=== PATIENT | female | born 1955 | race Caucasian/White ===

== ENCOUNTER 2017-11-19 16:52 | Inpatient (IN) | payer OTHER, SELFPAY ==
[2017-11-19 16:53] VITALS: BP 115/83; PULSE 125; RESP 18; TEMP 36.6; O2SAT 95; BMI 28.5
[2017-11-19 17:49] LABS: Mucous, Urine 0 SEEN /hpf (<or=2+)
[2017-11-19 17:59] LABS: Color, Urine Straw (Yellow); Glucose, Dipstick Normal (Normal); Ketone-Dipstick Negative (Negative); Leukocyte Esterase-Dipstick 500 /ul (Negative); Nitrite-Dipstick Negative (Negative); Occult Blood-Urine 50 /ul (Negative); Protein-Dipstick 30 mg/dl (Negative); Specific Gravity, Urine 1.005 (1.002-1.030); Urine Bilirubin Dipstick Negative (Negative); Urine Clarity Sl. Cloudy (Clear); Urine Urobilinogen Normal (Normal); Urine pH 6.5 (5.0 - 8.0)
[2017-11-19 18:30] LABS: Bacteria 1+ /hpf (None Seen); Red Blood Cells-Urine 5-10 SEEN /hpf (0-5); Squamous Epithelial Cells - UA 0-5 SEEN /hpf (5-10); White Blood Cells 50-100 SEEN /hpf (0-5)
[2017-11-19 18:31] LABS: Amorphous Sediment 1+ URATE
[2017-11-19] MEDS: 0.9% Normal Saline 1,000 ML 1000 ML IV (18:47)
[2017-11-19 18:52] LABS: Anion Gap 9 (5-15); BUN 17 mg/dL (7-18); BUN/Creat Ratio 16.3 RATIO (10-20); Calcium,Total 8.9 mg/dL (8.5-10.1); Chloride 106 mmol/L (98-107); Creatinine, Serum 1.04 mg/dL (0.55-1.02); EST Glomerular Filtration Rate 57 mL/min (>60); Est Glom Filt Rate - Afr Amer 69 mL/min (>60); Estimated Creatinine Clearance 60.12 ml/min; Glucose 121 mg/dL (74-106); Sodium Level 141 mmol/L (136-145)
[2017-11-19 19:26] VITALS: BP 111/67; PULSE 105; RESP 16; O2SAT 99
[2017-11-19] MEDS: 0.9% Normal Saline 1,000 ML 500 ML IV (19:39)
[2017-11-19] MEDS: Ciprofloxacin 500 MG Tablet PO (20:03)
[2017-11-19 21:45] LABS: Absolute Lymphocyte Count 1.02 X10^3/ul (0.83-4.51); Absolute Neutrophil Count 16.4 X10^3/uL (2.0-7.7); Basophil# 0.02 X10^3/uL; Basophil% 0.1 % (0-1); Eosinophil# 0.01 X10^3/uL; Eosinophils% 0.1 % (0-5); Hematocrit 39.9 % (37-47); Hemoglobin 13.7 g/dl (12.0-15.0); Lymphocyte # 1.02 X10^3/ul (4.0); Lymphocyte % 5.5 % (19-41); Mean Corp Hgb Conc 34.3 g/gl (32-36); Mean Corpuscular Hgb 30.9 pg (27.0-32.0); Mean Corpuscular Volume 90.1 fL (81-99); Mean Platelet Vol. 9.7 fl (6.2-12.0); Monocyte# 0.99 X10^3/uL; Monocyte% 5.4 % (0-10); Neutrophil # 16.41 X10^3/uL (2.7-7.7); Neutrophil % 88.7 % (47-70); Platelet Count 168 K/mm3 (150-450); RBC Distribution Width SD 42.4 fl (35.1-43.9); Red Blood Count 4.43 M/mm3 (4.2-5.4); White Blood Count 18.5 K/mm3 (4.4-11.0)
[2017-11-19 21:46] LABS: POSITIVE COUNT NO; POSITIVE DIFFERENTIAL NO; POSITIVE MORPHOLOGY NO
--- NOTE | 2017-11-19 22:03 | HP.PCM_ITS ---
Problem List (1) Sepsis secondary to UTI Status: Acute History of Present Illness Date of Admission: 11/19/17 Chief Complaint: Fever, dysuria The patient is a 62 year old F with no significant past medical history who comes in with complaints of fever and chills and dysuria with cloudy urine with frequency going for a couple of days with low back pain. Patient states that she has been having chills since morning and had a temperature of 100.6. Denies feeling dizzy or having palpitations or chest pain or shortness of breath or leg swelling. She admits to dysuria and frequency and urgency. Vitals in the ED show temperature of 90 8F, heart rate is 125, blood pressure 115/83, respiratory rate was 18 and she was saturating 95% on room air. Admitting labs showed RBC count of 18.5, hemoglobin of 13.7 platelet of 168, sodium 141, potassium 4.0, chloride 106, bicarbonate 26, BUN 17, creatinine 1.04 , lactic acid was 3.0. UA shows leukocyte esterase of 500, WBC count of between 50-100, urine is slightly cloudy. Past Medical History Allergies celecoxib [From Celebrex] Allergy (Verified 11/19/17 16:55) Unknown shellfish derived Allergy (Verified 11/19/17 16:55) Unknown amoxicillin Adverse Reaction (Verified 11/19/17 19:40) Itching Home Medications: Ambulatory Orders Medication Instructions Recorded Cholecalciferol (Vitamin D3) 1,000 unit PO DAILY 11/19/17 [Vitamin D3] Multivitamin [Multiple Vitamins] 1 each PO DAILY 11/19/17 [place]-3/Dha/Epa/Fish Oil [Fish Oil 1 each PO DAILY 11/19/17 1,000 mg Softgel] Surgical History: appendectomy Psychiatric History: No pertinent psych hx [employer] History: No pertinent [employer] history Lives: Spouse/ Significant Other Smoking Status: Never smoker Tobacco Use: Non-smoker Alcohol: None Drugs: None - *Family History Maternal History Items: Heart Disease - at age 79 Paternal History Items: Heart Disease Review of Systems Constitutional: Denies: Anorexia, Chills, Fever, Night Sweats, Weight Change Eyes: Denies: Blurred vision, Cataracts, Conjunctivae Inflammation, Double vision HEENT: Denies: Difficulty Hearing, Difficulty Swallowing, Head Aches, Hearing Changes, Sinus Congestion, Sinus Drainage, Sore Throat Cardiovascular: Denies: Chest Pain, Claudication, Chest Pressure, Palpitations Respiratory: Denies: Cough, Shortness of breath at rest, Sputum production Gastrointestinal: Denies: Abdominal Pain, Hematemesis, Nausea, Vomiting Genitourinary: Denies: Dysuria, Frequency Gynecological: Reports: Breast symptoms. Denies: Vaginal discharge, Vaginal itching Musculoskeletal: Denies: Joint Pain, Joint stiffness, Joint swelling, Joint Tenderness Skin: Denies: Rash, Wounds Neurological: Denies: Balance problems, Blurred vision, Difficulty swallowing, Focal weakness, Numbness, Tingling Psychiatric: Denies: Anxiety, Depression, Homicidal Ideations, Suicidal Ideations Hematologic/ Lymphatic: Denies: Easy Bruising, Easy Bleeding VTE Information - Inpt Only VTE Present on Admission: No VTE Pharm Prophylaxis ordered?: Yes Patient Problems: Active and Suspected Problems Sepsis secondary to UTI (Acute) - Physical Exam General: Alert, Oriented x3, Cooperative, - - in mild distress HEENT: Atraumatic, PERRLA, EOMI, Normocephalic Oral: Dry Mucosa Neck: Supple Lungs: Clear to auscultation, Normal air movement Cardiovascular: Regular rate, Regular Rhythm, Normal S1, Normal S2, No murmurs Abdomen: Bowel Sounds Present, Soft, Non Tender, Non-Distended, No Hepato- splenomegaly, - - LOw back tenderness, no bilateral flank tenderness Extremities: No edema Skin: No rashes, No breakdown Musculoskeletal: No Tenderness to Palpation of Joints or Extremities Neurological: Cranial nerves II-XII grossly intact Psych/Mental Status: Normal Affect, Appropriate Vital Signs Temp Pulse Resp BP Pulse Ox 98 F 105 H 16 111/67 99 11/19/17 16:53 11/19/17 19:26 11/19/17 19:26 11/19/17 19:26 11/19/17 19:26 Oxygen Delivery Method Room Air Weight: 87.543 kg Body Mass Index (BMI) 28.5 Laboratory Tests Past 24 Hrs 11/19/17 11/19/17 11/19/17 17:42 18:30 21:30 WBC 18.5 H RBC 4.43 Hgb 13.7 Hct 39.9 MCV 90.1 MCH 30.9 MCHC 34.3 RDW 13.0 RDW Differential 42.4 Plt Count 168 MPV 9.7 Immature Gran % (Auto) 0.200 Neut % (Auto) 88.7 H Lymph % (Auto) 5.5 L [place] % (Auto) 5.4 Eos % (Auto) 0.1 Baso % (Auto) 0.1 Absolute Neuts (auto) 16.4 H Absolute Lymphs (auto) 1.02 Total Counted Not Reportable Sodium 141 Potassium 4.0 Chloride 106 Carbon Dioxide 26.0 Anion Gap 9 BUN 17 Creatinine 1.04 H Estim Creat Clear Calc 60.12 Est GFR (MDRD) Af Amer 69 Est GFR (MDRD) Non-Af 57 L BUN/Creatinine Ratio 16.3 Glucose 121 H Lactic Acid Calcium 8.9 Urine Color Straw Urine Clarity Sl. Cloudy Urine pH 6.5 Ur Specific [place] 1.005 Urine Protein 30 H Urine Glucose (UA) Normal Urine Ketones Negative Urine Occult Blood 50 H Urine Nitrite Negative Urine Bilirubin Negative Urine Urobilinogen Normal Ur Leukocyte Esterase 500 H Urine RBC 5-10 SEEN Urine WBC 50-100 SEEN Ur Squamous Epith Cells 0-5 SEEN Amorphous Sediment 1+ URATE Urine Bacteria 1+ Urine Mucus 0 SEEN 11/19/17 21:30 WBC RBC Hgb Hct MCV MCH MCHC RDW RDW Differential Plt Count MPV Immature Gran % (Auto) Neut % (Auto) Lymph % (Auto) [place] % (Auto) Eos % (Auto) Baso % (Auto) Absolute Neuts (auto) Absolute Lymphs (auto) Total Counted Sodium Potassium Chloride Carbon Dioxide Anion Gap BUN Creatinine Estim Creat Clear Calc Est GFR (MDRD) Af Amer Est GFR (MDRD) Non-Af BUN/Creatinine Ratio Glucose Lactic Acid Pending Calcium Urine Color Urine Clarity Urine pH Ur Specific [place] Urine Protein Urine Glucose (UA) Urine Ketones Urine Occult Blood Urine Nitrite Urine Bilirubin Urine Urobilinogen Ur Leukocyte Esterase Urine RBC Urine WBC Ur Squamous Epith Cells Amorphous Sediment Urine Bacteria Urine Mucus Assessment/Plan Active and Suspected Problems Sepsis secondary to UTI (Acute) 62 year old F with no significant past medical history who comes in with complaints of fever and chills and dysuria with cloudy urine with frequency going for a couple of days with low back pain. 1. Severe sepsis secondary to UTI, patient is symptomatic, tachycardiac with heart rate of 125, leucocytosis of 18.5, lactic acid is 3.0 Plan: Admit to PCU, monitor on telemetry, IV fluids, repeat lactic acid, IV Cipro, alter antibiotics according to urine culture results, ultrasound of kidney and bladder. 2. Dehydration secondary to the #1 above, started on IV fluids, slight elevation in creatinine, will repeat labs in a.m. 3. DVT PPx - Lovenox SC Code Visit Inpatient E&M: 27034 Subs Hosp L3
--- NOTE | 2017-11-19 22:20 | ED.RN ---
lab called with critical lab results. lactic acid 3.0. Dr. Tyler made aware. no new orders at this time
[2017-11-19] MEDS: Acetaminophen 500 MG Tablet 1000 MG PO (22:21)
[2017-11-19 22:23] VITALS: BP 135/60; PULSE 111; RESP 16; O2SAT 96
--- NOTE | 2017-11-19 22:24 | ED.VISSUMM ---
- ER Visit Summary Date of Service: 11/19/17 Chief Complaint: Back pain, possible UTI History of Present Illness: The patient is a 62 F presents with back pain which began yesterday. She states it feels similar to when she has had urinary tract infections before. She has had cloudy urine. She has nausea with no vomiting. She has chills. She has had fever up to 100.3 at home. She went to urgent care and was sent to the ED for further evaluation. Physical Examination: Vitals are stable. Patient is afebrile. Heart rate 125 alert no acute distress. HEENT exam is unremarkable. Neck is supple, no meningismus Lungs are clear and equal bilaterally. Heart is regular and tachycardic Abdomen is soft nontender nondistended. Back: mild bilateral CVA tenderness Extremities are unremarkable. Skin is warm and dry. No rash No focal neurologic deficit. Remainder of exam is unremarkable. Emergency Department Course and Treatment: She was given IV fluids. Her heart rate came down to 105 but she continued to feel shaking chills. Repeat temperature was 100.3. Chemistries show creatinine 1.04. CBC shows white count of 18.5. Urinalysis shows 50-100 white blood cells. Urine culture was sent. Lactic acid is 3.0. She was given Cipro. Discussed with the hospitalist for admission. Disposition: Admission Impression: Pyelonephritis, severe sepsis This note was generated with [employer] dictation software. It may contain incorrect words, spelling, and punctuation that were not noted in review of the chart prior to signing ED Disposition - Plan for ED Patient: Chief Complaint: Complaint
[2017-11-19] MEDS: Ceftriaxone 1 GM/50 ML BAG IV (22:50)
[2017-11-19 23:36] VITALS: BMI 28.7
[2017-11-19 23:38] VITALS: BP 115/73; PULSE 102; RESP 20; TEMP 38.3; O2SAT 94
[2017-11-19 23:49] VITALS: BMI 28.7
[2017-11-19] MEDS: 0.9% Normal Saline 1,000 ML 100 ML IV (23:53)
[2017-11-20] VITALS (14 sets, daily range): BP systolic 104–130; BP diastolic 58–82; PULSE 75–130; RESP 16–18; TEMP 36.8–39.4; O2SAT 95–99
[2017-11-20 01:40] LABS: Reflex Lactate? Y
[2017-11-20 03:00] LABS: Anion Gap 9 (5-15); BUN 15 mg/dL (7-18); BUN/Creat Ratio 17.4 RATIO (10-20); Calcium,Total 8.2 mg/dL (8.5-10.1); Chloride 111 mmol/L (98-107); Creatinine, Serum 0.86 mg/dL (0.55-1.02); EST Glomerular Filtration Rate 71 mL/min (>60); Est Glom Filt Rate - Afr Amer 86 mL/min (>60); Glucose 109 mg/dL (74-106); Potassium 3.7 mmol/L (3.5-5.1); Sodium Level 143 mmol/L (136-145)
[2017-11-20 03:04] LABS: Lactic Acid 1.6 mmol/L (0.4-2.0)
[2017-11-20 03:16] LABS: Absolute Lymphocyte Count 0.99 X10^3/ul (0.83-4.51); Absolute Neutrophil Count 15.1 X10^3/uL (2.0-7.7); Basophil# 0.01 X10^3/uL; Basophil% 0.1 % (0-1); Hematocrit 38.3 % (37-47); Hemoglobin 13.3 g/dl (12.0-15.0); Lymphocyte # 0.99 X10^3/ul (4.0); Lymphocyte % 5.8 % (19-41); Mean Corp Hgb Conc 34.7 g/gl (32-36); Mean Corpuscular Hgb 31.4 pg (27.0-32.0); Mean Corpuscular Volume 90.3 fL (81-99); Mean Platelet Vol. 9.9 fl (6.2-12.0); Monocyte# 1.04 X10^3/uL; Monocyte% 6.1 % (0-10); Neutrophil # 15.09 X10^3/uL (2.7-7.7); Neutrophil % 87.8 % (47-70); Platelet Count 162 K/mm3 (150-450); RBC Distribution Width CV 13.2 % (11.6-14.6); RBC Distribution Width SD 42.9 fl (35.1-43.9); Red Blood Count 4.24 M/mm3 (4.2-5.4); White Blood Count 17.2 K/mm3 (4.4-11.0)
[2017-11-20 03:17] LABS: POSITIVE COUNT NO; POSITIVE DIFFERENTIAL NO; POSITIVE MORPHOLOGY NO
[2017-11-20] MEDS: Acetaminophen 325 MG Tablet 650 MG PO ×3 (04:52→20:49)
--- NOTE | 2017-11-20 05:55 | US_ITS ---
STUDY: RENAL ULTRASOUND - COMPLETE REASON FOR EXAM: Female, 62 years old. Flank pain. Urinary tract infection. Fever. TECHNIQUE: Ultrasound evaluation of the kidneys was performed with real-time and static simpson-scale imaging. COMPARISON: None. FINDINGS: RIGHT KIDNEY: Normal location of the right kidney, which is normal in size. The right kidney measures 13.7 cm. There is a normal cortex of the right kidney. The renal cortex measures 1.4 cm. There is no right renal mass or cyst. There are echogenic foci measuring 0.3 and 0.4 cm consistent with stones. There is moderate hydronephrosis of the right kidney. DISTAL RIGHT URETER: There is non-visualization of the distal right ureter. There is no demonstrated right ureterovesical junction calculus. There is a visualized right ureteral jet. LEFT KIDNEY: Normal location of the left kidney, which is normal in size. The left kidney measures 13.3 cm. There is a normal cortex of the left kidney. The renal cortex measures 1.8 cm. There is no left renal mass or cyst. There is 0.5 cm echogenic focus consistent with stone. There is moderate hydronephrosis of the left kidney. DISTAL LEFT URETER: There is non-visualization of the distal left ureter. There is no demonstrated left ureterovesical junction calculus. There is a visualized left ureteral jet. BLADDER: The distended urinary bladder has a volume of 95 ml. The empty urinary bladder has a volume of 21 ml. There is a normal wall thickness of the distended urinary bladder. There is no demonstrated mass within the urinary bladder. There are no demonstrated bladder calculi. US/Kidney and Bladder IMPRESSION: Bilateral renal stones. Bilateral hydronephrosis. Electronically Signed: Shai Clark MD at 15:13 EST , Service support ,
[2017-11-20] MEDS: Omega-3 Acid Ethyl Esters 1 GM Capsule PO (08:51)
[2017-11-20] MEDS: Multivitamins,Therapeutic Tablet 1 TABLET PO (08:51)
[2017-11-20] MEDS: 0.9% Normal Saline 1,000 ML 100 ML IV (08:51)
[2017-11-20] MEDS: Ciprofloxacin 400 MG/200 ML BAG 200 MG IV ×2 (10:46→22:09)
--- NOTE | 2017-11-20 11:51 | PCM.DC ---
- Discharge Diagnoses Current Active Problems: Current Active and Chronic Problems Sepsis secondary to UTI (Acute) You will use the following diet at home:: No restrictions Your food should be the consistency of: Regular Your liquids should be the consistency of: Regular/Thin Call your doctor if you observe: Fever of 101 or Higher, - - Discomfort urinating. Allergies/Adverse Reactions: Allergies celecoxib [From Celebrex] Allergy (Verified 11/19/17 16:55) Unknown shellfish derived Allergy (Verified 11/19/17 16:55) Unknown amoxicillin Adverse Reaction (Verified 11/19/17 19:40) Itching Medications to take at Discharge Cholecalciferol (Vitamin D3) [Vitamin D3] 1,000 unit PO DAILY 11/19/17 Multivitamin [Multiple Vitamins] 1 each PO DAILY 11/19/17 [place]-3/Dha/Epa/Fish Oil [Fish Oil 1,000 mg Softgel] 1 each PO DAILY 11/19/17 Acetaminophen [Tylenol Tablet] 500 mg PO Q4H PRN PRN tablet 11/20/17 Ciprofloxacin [Cipro] 500 mg PO BID #20 tab 11/20/17 The following prescriptions were given: Ciprofloxacin [Cipro] 500 mg PO BID #20 tab Primary Care Physician: Herrera Birmingham MD [Primary Care Provider] - Within 1 Week Proposed Discharge Date: 11/20/17
--- NOTE | 2017-11-20 11:57 | DS.PCM_ITS ---
Discharge Date and Diagnosis - Problem List Patient Problems: Active and Suspected Problems Severe sepsis (Acute) UTI (urinary tract infection) (Acute) Date of Admission: 11/19/17 Date of Discharge: 11/20/17 - Primary Discharge Diagnosis Active and Suspected Problems Sepsis secondary to UTI (Acute) Hospital Course and Treatment Imaging Results: 11/20/17 05:55 Kidney and Bladder [US] AM (NON MEDS) Operations: None Procedures: None Summary of Care Provided: The patient is a 62 year old F presents with dysuria and fever. Patient had a temperature of 100.6 Fahrenheit. Presented to the emergency room where she had a white count of 18.5 and lactic acid of 3. Patient had urinalysis that was positive for urinary tract infection. So it was felt that this was a UTI. Patient had no flank tenderness. But patient with severe sepsis and did receive IV fluids. Patient's lactic acidosis resolved and is 1.6. Patient is otherwise feeling well and anxious to go home. And told patient we could send her home but the safe way be just to continue to watch her and ensure that her cultures are showing that she is on proper antibiotics but given the patient's clinical condition has improved, that she no longer febrile and her white count is trending down and I do not feel that it is unreasonable for the patient to be discharged. I will follow up on urine culture and notify the patient if the culture results showing showing something that is resistant to the antibiotic which is can be ciprofloxacin. I am empirically treat her for pyelonephritis with ciprofloxacin for 10 days. [] physical exam Vital Signs Height 1.75 m Weight: 88.2 kg Weight in Pounds 194.4 lbs Pulse Ox 98 Temperature 36.8 C Pulse Rate 89 Respiratory Rate 18 Blood Pressure 104/58 Blood Pressure Position Sitting She is afebrile. Nontoxic. Heart is regular rate and rhythm plus S1-S2 without any murmurs gallops or rubs. Lungs are clear to auscultation bilaterally. Abdomen is soft nontender nondistended with normal bowel sounds. No costovertebral angle tenderness noted. Discharge Diet: No Restrictions Discharge Activity: Return to Normal Activity Call your doctor if you observe: Fever of 101 or Higher, - - Discomfort urinating. Home Medications: Medications to take at Discharge Cholecalciferol (Vitamin D3) [Vitamin D3] 1,000 unit PO DAILY 11/19/17 Multivitamin [Multiple Vitamins] 1 each PO DAILY 11/19/17 [place]-3/Dha/Epa/Fish Oil [Fish Oil 1,000 mg Softgel] 1 each PO DAILY 11/19/17 Acetaminophen [Tylenol Tablet] 500 mg PO Q4H PRN PRN tablet 11/20/17 Ciprofloxacin [Cipro] 500 mg PO BID #20 tab 11/20/17 Following Prescrptions Were Given to Patient: Ciprofloxacin [Cipro] 500 mg PO BID #20 tab Primary Care Physician: Herrera Birmingham MD [Primary Care Provider] - Within 1 Week Disposition: Home Minutes spent on discharge:: 28 Patient Condition:: Good Meaningful Use Info Meaningful Use Diagnoses (Choose all that apply): None applicable Code Visit Inpatient E&M: 69742 Disch Hosp
[2017-11-20] MEDS: Ibuprofen 400 MG Tablet PO (19:08)
[2017-11-21] VITALS (13 sets, daily range): BP systolic 105–134; BP diastolic 56–80; PULSE 69–113; RESP 16; TEMP 36.4–39.2; O2SAT 96–98
[2017-11-21] MEDS: Multivitamins,Therapeutic Tablet 1 TABLET PO (09:04)
[2017-11-21] MEDS: Omega-3 Acid Ethyl Esters 1 GM Capsule PO (09:04)
--- NOTE | 2017-11-21 09:27 | CT_ITS ---
STUDY: CT ABDOMEN AND PELVIS WITH CONTRAST REASON FOR EXAM: Female, 62 years old. Bilateral hydronephrosis. The superior and UTI. RADIATION DOSAGE (If Supplied By Facility): CTDIvol = ( 17.36 ) mGy, DLP = ( 2158.33 ) mGycm TECHNIQUE: Transaxial images were obtained from the dome of the diaphragm to the symphysis pubis without oral contrast. 100CC ml of Isovue 300 contrast was administered. Sagittal and coronal images were reconstructed. Individualized dose optimization techniques were used for this CT. COMPARISON: Comparison is made with prior renal sonogram dated November 20, 2017. FINDINGS: Minimal left pleural effusion with left basilar atelectasis and/or infiltration. The visualized portions of the heart are within normal limits. There is a 1.85 m cyst in the caudate lobe of the liver. There is a 2.57 m cyst in the medial aspect of the right lobe of liver adjacent to the falciform ligament. This also evidence of scattered small cysts in the right lobe. Mild fatty infiltration of the liver. Normal gallbladder and extrahepatic biliary system. There are multiple benign calcified granulomata of the spleen. Normal pancreas. Normal bilateral adrenal glands. There is evidence of multiple right parapelvic cysts. No significant hydronephrosis is seen. There is also evidence of left parapelvic cysts. Mild to moderate degree of left hydronephrosis with left hydroureter down to the ureterovesical junction where there is a 5.1 mm calculus. I also suspect 2 smaller calculi in the distal portion of the left ureter proximal to the ureterovesical junction. Left perinephric stranding as well as increased markings in the left para colic gutter most likely secondary to the obstruction. There is a small hiatal hernia. Normal small intestine. Normal colon. The appendix is visualized and appears normal. Normal abdominal aorta. Normal inferior vena cava. Normal retroperitoneum. Normal urinary bladder. Small amount of free fluid in the cul-de-sac. There is evidence of prior bilateral tubal ligation. There is a small umbilical hernia containing fat. There are degenerative changes of the visualized lumbar spine. CT/Abdomen/Pelvis WITH Contrast IMPRESSION: Left-sided hydronephrosis and hydroureter due to a calculus in the distal portion of the left ureter as well as in the ureterovesical junction as described. Left perinephric stranding. Bilateral peripelvic cysts. Small left pleural effusion with underlying infiltration and/or atelectasis. Electronically Signed: Reggie Javed MD at 10:49 EST Tel [phone], Service support ,
--- NOTE | 2017-11-21 09:42 | PCM.PN.HOSP ---
Patient Problems: Active and Suspected Problems UTI (urinary tract infection) (Acute) Severe sepsis (Acute) Subjective: Feeling better today. Vitals/I&O's: Vital Signs Temp Pulse Resp BP Pulse Ox 37.2 C 82 16 105/56 L 98 11/21/17 05:40 11/21/17 08:05 11/21/17 02:50 11/21/17 02:50 11/21/17 02:50 Oxygen Delivery Method Room Air Weight: 88.2 kg Body Mass Index (BMI) 28.7 Intake and Output for Last 24 Hours 11/19/17 11/20/17 11/21/17 23:59 23:59 23:59 Intake Total 5083 / 5083 Output Total 2150 / 2150 Balance 2933 / 2933 General: Alert, Cooperative, No apparent distress HEENT: Atraumatic, Normocephalic Neck: No Nodes, Thyroid Normal Size and Texture Lungs: Clear to auscultation, Normal air movement, No rhonchi, No wheeze Cardiovascular: Regular rate, Regular Rhythm, Normal S1, Normal S2, No murmurs Abdomen: Bowel Sounds Present, Soft, Non Tender, Non-Distended, No Hepato-splenomegaly, - - No costovertebral angle tenderness. Extremities: No edema, No Calf Tenderness Current Medications Acetaminophen (Tylenol) 650 mg PO Q4H PRN PRN PRN Reason: Mild Pain (1-3)/Temp > 100.7 F Last Admin: 11/20/17 20:49 Dose: 650 mg Bisacodyl (Dulcolax) 5 mg PO DAILY PRN PRN PRN Reason: Constipation Cholecalciferol (Vitamin D) 1,000 unit PO DAILY [facility] [place] Last Admin: 11/21/17 09:04 Dose: 1,000 unit Ciprofloxacin (Cipro) 400 mg in 200 mls @ 200 mls/hr IV Q12 [facility] [place] Last Admin: 11/20/17 22:09 Dose: 200 mls/hr Ibuprofen (Motrin) 400 mg PO Q4H PRN PRN PRN Reason: MILD PAIN (1-3/10) Last Admin: 11/20/17 19:08 Dose: 400 mg Magnesium Hydroxide (Milk Of Magnesia) 30 ml PO DAILY PRN PRN PRN Reason: Constipation Multivitamins (Multivitamin) 1 tablet PO DAILY@0800 [facility] [place] Last Admin: 11/21/17 09:04 Dose: 1 tablet [id number] Ethyl Esters (Lovaza) 1 gm PO DAILY [facility] Last Admin: 11/21/17 09:04 Dose: 1 gm Ondansetron HCl (Zofran) 4 mg IV Q8H PRN PRN PRN Reason: NAUSEA Oxycodone HCl (Oxyir) 5 mg PO Q6H PRN PRN PRN Reason: SEVERE PAIN (6-10/10) Oxycodone HCl (Oxyir) 5 - 10 mg PO Q4H PRN PRN PRN Reason: MOD-SEVERE PAIN (4-10/10) Sodium Chloride () 5 - 30 ml IV UD PRN PRN Reason: SALINE FLUSH Assessment/Plan Active and Suspected Problems UTI (urinary tract infection) (Acute) Severe sepsis (Acute) 1. severe sepsis POA 2/2 #2 2. UTI: + klebsiella bcx negative 3. hydronephrosis incidental finding. vijaya Marques, recommend CT order CT and follow up
--- NOTE | 2017-11-21 09:49 | PN_ITS ---
Patient Problems: Active and Suspected Problems UTI (urinary tract infection) (Acute) Severe sepsis (Acute) Subjective: Feeling better today. Vitals/I&O's: Vital Signs Temp Pulse Resp BP Pulse Ox 37.2 C 82 16 105/56 L 98 11/21/17 05:40 11/21/17 08:05 11/21/17 02:50 11/21/17 02:50 11/21/17 02:50 Oxygen Delivery Method Room Air Weight: 88.2 kg Body Mass Index (BMI) 28.7 Intake and Output for Last 24 Hours 11/19/17 11/20/17 11/21/17 23:59 23:59 23:59 Intake Total 5083 / 5083 Output Total 2150 / 2150 Balance 2933 / 2933 General: Alert, Cooperative, No apparent distress HEENT: Atraumatic, Normocephalic Neck: No Nodes, Thyroid Normal Size and Texture Lungs: Clear to auscultation, Normal air movement, No rhonchi, No wheeze Cardiovascular: Regular rate, Regular Rhythm, Normal S1, Normal S2, No murmurs Abdomen: Bowel Sounds Present, Soft, Non Tender, Non-Distended, No Hepato- splenomegaly, - - No costovertebral angle tenderness. Extremities: No edema, No Calf Tenderness Current Medications Acetaminophen (Tylenol) 650 mg PO Q4H PRN PRN PRN Reason: Mild Pain (1-3)/Temp > 100.7 F Last Admin: 11/20/17 20:49 Dose: 650 mg Bisacodyl (Dulcolax) 5 mg PO DAILY PRN PRN PRN Reason: Constipation Cholecalciferol (Vitamin D) 1,000 unit PO DAILY [facility] Last Admin: 11/21/17 09:04 Dose: 1,000 unit Ciprofloxacin (Cipro) 400 mg in 200 mls @ 200 mls/hr IV Q12 [facility] Last Admin: 11/20/17 22:09 Dose: 200 mls/hr Ibuprofen (Motrin) 400 mg PO Q4H PRN PRN PRN Reason: MILD PAIN (1-3/10) Last Admin: 11/20/17 19:08 Dose: 400 mg Magnesium Hydroxide (Milk Of Magnesia) 30 ml PO DAILY PRN PRN PRN Reason: Constipation Multivitamins (Multivitamin) 1 tablet PO DAILY@0800 [facility] Last Admin: 11/21/17 09:04 Dose: 1 tablet [place]-4-Zwha Ethyl Esters (Lovaza) 1 gm PO DAILY [facility] Last Admin: 11/21/17 09:04 Dose: 1 gm Ondansetron HCl (Zofran) 4 mg IV Q8H PRN PRN PRN Reason: NAUSEA Oxycodone HCl (Oxyir) 5 mg PO Q6H PRN PRN PRN Reason: SEVERE PAIN (6-10/10) Oxycodone HCl (Oxyir) 5 - 10 mg PO Q4H PRN PRN PRN Reason: MOD-SEVERE PAIN (4-10/10) Sodium Chloride () 5 - 30 ml IV UD PRN PRN Reason: SALINE FLUSH Assessment/Plan Active and Suspected Problems UTI (urinary tract infection) (Acute) Severe sepsis (Acute) 1. severe sepsis * POA * 2/2 #2 2. UTI: * + klebsiella * bcx negative 3. hydronephrosis * incidental finding. * vijaya Marques, recommend CT * order CT and follow up
[2017-11-21] MEDS: Ciprofloxacin 400 MG/200 ML BAG 200 MG IV ×2 (10:29→21:13)
[2017-11-21] MEDS: 0.9% NaCl Peripheral Flush Adult/Peds IV ×3 (10:29→23:26)
--- NOTE | 2017-11-21 14:48 | CASEMGMT ---
RN CM Note: pt to return home today. Independent, no dc needs identified. Roger YAON RN ACM
[2017-11-21] MEDS: Acetaminophen 325 MG Tablet 650 MG PO (15:44)
--- NOTE | 2017-11-21 17:32 | PCM.CONS.U ---
Problem List (1) UTI (urinary tract infection) Status: Acute Qualifiers: Urinary tract infection type: acute pyelonephritis Qualified Code(s): N10 - Acute pyelonephritis (2) Ureteral calculi Status: Acute Comment: left side with left hydro and UTI Reason for Consult Date of Consultation: 11/21/17 Reason for Consultation: ureteral calculi, with hydroneophrosis, UTI, pyelo History of Present Illness: The patient is a 62 year old Female admitted with left pyelo ct scan with obstruction of the left ureter with stones x 2. admitted and now stable, some pain in the back. Past Medical History Allergies celecoxib [From Celebrex] Allergy (Verified 11/19/17 16:55) Unknown shellfish derived Allergy (Verified 11/19/17 16:55) Unknown amoxicillin Adverse Reaction (Verified 11/19/17 19:40) Itching Home Medications: Ambulatory Orders Medication Instructions Recorded Cholecalciferol (Vitamin D3) 1,000 unit PO DAILY 11/19/17 [Vitamin D3] Multivitamin [Multiple Vitamins] 1 each PO DAILY 11/19/17 [place]-3/Dha/Epa/Fish Oil [Fish Oil 1 each PO DAILY 11/19/17 1,000 mg Softgel] Acetaminophen [Tylenol Tablet] 500 mg PO Q4H PRN PRN tablet 11/20/17 Ciprofloxacin [Cipro] 500 mg PO BID #20 tab 11/20/17 Surgical History: appendectomy Psychiatric History: No pertinent psych hx 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 Denies: Chills, Weight Change HEENT: Denies: Head Aches, Sinus Congestion, Sinus Drainage Cardiovascular: Denies: Chest Pain, Palpitations Respiratory: Denies: Cough, Shortness of breath at rest, Sputum production Gastrointestinal: Denies: Abdominal Pain, Nausea, Vomiting Genitourinary: Reports: Frequency. Denies: Dysuria Musculoskeletal: Denies: Joint Pain, Joint Tenderness Skin: Denies: Rash, Wounds Neurological: Denies: Numbness, Tingling, Focal weakness Psychiatric: Denies: Anxiety, Depression, Homicidal Ideations, Suicidal Ideations Hematologic/ Lymphatic: Denies: Easy Bruising, Easy Bleeding Physical Exam - Physical Exam Vital Signs Temp 102.6 F H 11/21/17 15:40 Pulse 98 11/21/17 15:59 Resp 16 11/21/17 15:40 BP 134/80 H 11/21/17 15:40 Pulse Ox 97 11/21/17 15:40 Intake & Output 11/19/17 11/20/17 11/21/17 23:59 23:59 23:59 Intake Total 5083 / 5083 526 / 526 Output Total 2150 / 2150 Balance 2933 / 2933 526 / 526 Weight: 88.2 kg 88.2 kg Intake: Oral 3050 / 3050 450 / 450 IV fluid/meds 2032 / 2032 76 / 76 Output: Urine 1550 / 1550 #2 Urine 600 / 600 General: Alert, Oriented x3 HEENT: Atraumatic Oral: Moist Mucosa Neck: Supple Cardiovascular: Regular rate Abdomen: Soft Rectal: Exam deferred Extremities: No clubbing, No cyanosis, No edema Skin: No rashes Musculoskeletal: No Tenderness to Palpation of Joints or Extremities Neurological: Cranial nerves II-XII grossly intact Psych/Mental Status: Normal Affect Assessment/Plan Active and Suspected Problems Ureteral calculi (Acute) left side with left hydro and UTI UTI (urinary tract infection) (Acute) Severe sepsis (Acute) npo for surgery plan or left ureteroscopy laser of stone and stent on the left.
--- NOTE | 2017-11-21 17:35 | CON.PCM_ITS ---
Problem List (1) UTI (urinary tract infection) Status: Acute Qualifiers: Urinary tract infection type: acute pyelonephritis Qualified Code(s): N10 - Acute pyelonephritis (2) Ureteral calculi Status: Acute Comment: left side with left hydro and UTI Reason for Consult Date of Consultation: 11/21/17 Reason for Consultation: ureteral calculi, with hydroneophrosis, UTI, pyelo History of Present Illness: The patient is a 62 year old Female admitted with left pyelo ct scan with obstruction of the left ureter with stones x 2. admitted and now stable, some pain in the back. Past Medical History Allergies celecoxib [From Celebrex] Allergy (Verified 11/19/17 16:55) Unknown shellfish derived Allergy (Verified 11/19/17 16:55) Unknown amoxicillin Adverse Reaction (Verified 11/19/17 19:40) Itching Home Medications: Ambulatory Orders Medication Instructions Recorded Cholecalciferol (Vitamin D3) 1,000 unit PO DAILY 11/19/17 [Vitamin D3] Multivitamin [Multiple Vitamins] 1 each PO DAILY 11/19/17 [place]-3/Dha/Epa/Fish Oil [Fish Oil 1 each PO DAILY 11/19/17 1,000 mg Softgel] Acetaminophen [Tylenol Tablet] 500 mg PO Q4H PRN PRN tablet 11/20/17 Ciprofloxacin [Cipro] 500 mg PO BID #20 tab 11/20/17 Surgical History: appendectomy Psychiatric History: No pertinent psych hx 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 Denies: Chills, Weight Change HEENT: Denies: Head Aches, Sinus Congestion, Sinus Drainage Cardiovascular: Denies: Chest Pain, Palpitations Respiratory: Denies: Cough, Shortness of breath at rest, Sputum production Gastrointestinal: Denies: Abdominal Pain, Nausea, Vomiting Genitourinary: Reports: Frequency. Denies: Dysuria Musculoskeletal: Denies: Joint Pain, Joint Tenderness Skin: Denies: Rash, Wounds Neurological: Denies: Numbness, Tingling, Focal weakness Psychiatric: Denies: Anxiety, Depression, Homicidal Ideations, Suicidal Ideations Hematologic/ Lymphatic: Denies: Easy Bruising, Easy Bleeding Physical Exam - Physical Exam Vital Signs Temp 102.6 F H 11/21/17 15:40 Pulse 98 11/21/17 15:59 Resp 16 11/21/17 15:40 BP 134/80 H 11/21/17 15:40 Pulse Ox 97 11/21/17 15:40 Intake & Output 11/19/17 11/20/17 11/21/17 23:59 23:59 23:59 Intake Total 5083 / 5083 526 / 526 Output Total 2150 / 2150 Balance 2933 / 2933 526 / 526 Weight: 88.2 kg 88.2 kg Intake: Oral 3050 / 3050 450 / 450 IV fluid/meds 2032 / 2032 76 / 76 Output: Urine 1550 / 1550 #2 Urine 600 / 600 General: Alert, Oriented x3 HEENT: Atraumatic Oral: Moist Mucosa Neck: Supple Cardiovascular: Regular rate Abdomen: Soft Rectal: Exam deferred Extremities: No clubbing, No cyanosis, No edema Skin: No rashes Musculoskeletal: No Tenderness to Palpation of Joints or Extremities Neurological: Cranial nerves II-XII grossly intact Psych/Mental Status: Normal Affect Assessment/Plan Active and Suspected Problems Ureteral calculi (Acute) left side with left hydro and UTI UTI (urinary tract infection) (Acute) Severe sepsis (Acute) npo for surgery plan or left ureteroscopy laser of stone and stent on the left.
[2017-11-22] VITALS (14 sets, daily range): BP systolic 108–131; BP diastolic 66–89; PULSE 60–102; RESP 12–20; TEMP 36.7–37.9; O2SAT 91–99; BMI 28.7
[2017-11-22] MEDS: Acetaminophen 325 MG Tablet 650 MG PO (01:43)
--- NOTE | 2017-11-22 02:06 | NURSING ---
Verbal handoff to ABHAY Morse
--- NOTE | 2017-11-22 09:36 | PCM.PN.HOSP ---
Patient Problems: Active and Suspected Problems Ureteral calculi (Acute) left side with left hydro and UTI UTI (urinary tract infection) (Acute) Severe sepsis (Acute) Subjective: still with intermittent fevers, but overall feeling well. last fever of 39.2 at 1540 on 11/21. no flank pain. Vitals/I&O's: Vital Signs Temp Pulse Resp BP Pulse Ox 37.4 C H 78 18 119/73 96 11/22/17 06:41 11/22/17 07:30 11/22/17 06:41 11/22/17 06:41 11/22/17 06:41 Oxygen Delivery Method Room Air Weight: 88.2 kg Body Mass Index (BMI) 28.7 Intake and Output for Last 24 Hours 11/20/17 11/21/17 11/22/17 23:59 23:59 23:59 Intake Total 5083 / 5083 1686 / 1686 100 / 100 Output Total 2150 / 2150 1550 / 1550 800 / 800 Balance 2933 / 2933 136 / 136 -700 / -700 General: Alert, Cooperative, No apparent distress HEENT: Atraumatic, Normocephalic Neck: No Nodes, Thyroid Normal Size and Texture Lungs: Clear to auscultation, Normal air movement, No rhonchi, No wheeze Cardiovascular: Regular rate, Regular Rhythm, Normal S1, Normal S2, No murmurs Abdomen: Bowel Sounds Present, Soft, Non Tender, Non-Distended, No Hepato-splenomegaly Extremities: No edema, No Calf Tenderness Psych/Mental Status: Normal Affect, Appropriate Current Medications Acetaminophen (Tylenol) 650 mg PO Q4H PRN PRN PRN Reason: Mild Pain (1-3)/Temp > 100.7 F Last Admin: 11/22/17 01:43 Dose: 650 mg Bisacodyl (Dulcolax) 5 mg PO DAILY PRN PRN PRN Reason: Constipation Cholecalciferol (Vitamin D) 1,000 unit PO DAILY [facility] Last Admin: 11/21/17 09:04 Dose: 1,000 unit Ciprofloxacin (Cipro) 400 mg in 200 mls @ 200 mls/hr IV Q12 [facility] Last Admin: 11/21/17 21:13 Dose: 200 mls/hr Ibuprofen (Motrin) 400 mg PO Q4H PRN PRN PRN Reason: MILD PAIN (1-3/10) Last Admin: 11/20/17 19:08 Dose: 400 mg Magnesium Hydroxide (Milk Of Magnesia) 30 ml PO DAILY PRN PRN PRN Reason: Constipation Multivitamins (Multivitamin) 1 tablet PO DAILY@0800 [facility] Last Admin: 11/22/17 07:41 Dose: Not Given Xdlnq-6-Xnsc Ethyl Esters (Lovaza) 1 gm PO DAILY [facility] Last Admin: 11/21/17 09:04 Dose: 1 gm Ondansetron HCl (Zofran) 4 mg IV Q8H PRN PRN PRN Reason: NAUSEA Oxycodone HCl (Oxyir) 5 mg PO Q6H PRN PRN PRN Reason: SEVERE PAIN (6-10/10) Oxycodone HCl (Oxyir) 5 - 10 mg PO Q4H PRN PRN PRN Reason: MOD-SEVERE PAIN (4-10/10) Sodium Chloride () 5 - 30 ml IV UD PRN PRN Reason: SALINE FLUSH Last Admin: 11/21/17 23:26 Dose: 10 ml Assessment/Plan Active and Suspected Problems Ureteral calculi (Acute) left side with left hydro and UTI UTI (urinary tract infection) (Acute) Severe sepsis (Acute) 1. severe sepsis POA 2/2 #2 resolved 2. UTI: + klebsiella bcx negative continue cipro 3. hydronephrosis bilateral on US, left on CT secondary to stone 4. left ureteral stone. for lithotripsy today by if tolerates, plan to DC today. Code Visit Inpatient E&M: 63145 Subs Hosp L2
--- NOTE | 2017-11-22 09:39 | PN_ITS ---
Patient Problems: Active and Suspected Problems Ureteral calculi (Acute) left side with left hydro and UTI UTI (urinary tract infection) (Acute) Severe sepsis (Acute) Subjective: still with intermittent fevers, but overall feeling well. last fever of 39.2 at 1540 on 11/21. no flank pain. Vitals/I&O's: Vital Signs Temp Pulse Resp BP Pulse Ox 37.4 C H 78 18 119/73 96 11/22/17 06:41 11/22/17 07:30 11/22/17 06:41 11/22/17 06:41 11/22/17 06:41 Oxygen Delivery Method Room Air Weight: 88.2 kg Body Mass Index (BMI) 28.7 Intake and Output for Last 24 Hours 11/20/17 11/21/17 11/22/17 23:59 23:59 23:59 Intake Total 5083 / 5083 1686 / 1686 100 / 100 Output Total 2150 / 2150 1550 / 1550 800 / 800 Balance 2933 / 2933 136 / 136 -700 / -700 General: Alert, Cooperative, No apparent distress HEENT: Atraumatic, Normocephalic Neck: No Nodes, Thyroid Normal Size and Texture Lungs: Clear to auscultation, Normal air movement, No rhonchi, No wheeze Cardiovascular: Regular rate, Regular Rhythm, Normal S1, Normal S2, No murmurs Abdomen: Bowel Sounds Present, Soft, Non Tender, Non-Distended, No Hepato- splenomegaly Extremities: No edema, No Calf Tenderness Psych/Mental Status: Normal Affect, Appropriate Current Medications Acetaminophen (Tylenol) 650 mg PO Q4H PRN PRN PRN Reason: Mild Pain (1-3)/Temp > 100.7 F Last Admin: 11/22/17 01:43 Dose: 650 mg Bisacodyl (Dulcolax) 5 mg PO DAILY PRN PRN PRN Reason: Constipation Cholecalciferol (Vitamin D) 1,000 unit PO DAILY [facility] Last Admin: 11/21/17 09:04 Dose: 1,000 unit Ciprofloxacin (Cipro) 400 mg in 200 mls @ 200 mls/hr IV Q12 [facility] Last Admin: 11/21/17 21:13 Dose: 200 mls/hr Ibuprofen (Motrin) 400 mg PO Q4H PRN PRN PRN Reason: MILD PAIN (1-3/10) Last Admin: 11/20/17 19:08 Dose: 400 mg Magnesium Hydroxide (Milk Of Magnesia) 30 ml PO DAILY PRN PRN PRN Reason: Constipation Multivitamins (Multivitamin) 1 tablet PO DAILY@0800 [facility] Last Admin: 11/22/17 07:41 Dose: Not Given Acxfz-2-Urjm Ethyl Esters (Lovaza) 1 gm PO DAILY [facility] Last Admin: 11/21/17 09:04 Dose: 1 gm Ondansetron HCl (Zofran) 4 mg IV Q8H PRN PRN PRN Reason: NAUSEA Oxycodone HCl (Oxyir) 5 mg PO Q6H PRN PRN PRN Reason: SEVERE PAIN (6-10/10) Oxycodone HCl (Oxyir) 5 - 10 mg PO Q4H PRN PRN PRN Reason: MOD-SEVERE PAIN (4-10/10) Sodium Chloride () 5 - 30 ml IV UD PRN PRN Reason: SALINE FLUSH Last Admin: 11/21/17 23:26 Dose: 10 ml Assessment/Plan Active and Suspected Problems Ureteral calculi (Acute) left side with left hydro and UTI UTI (urinary tract infection) (Acute) Severe sepsis (Acute) 1. severe sepsis * POA * 2/2 #2 * resolved 2. UTI: * + klebsiella * bcx negative * continue cipro 3. hydronephrosis * bilateral on US, left on CT * secondary to stone 4. left ureteral stone. * for lithotripsy today by * if tolerates, plan to DC today. Code Visit Inpatient E&M: 92713 Subs Hosp L2
[2017-11-22] MEDS: Ciprofloxacin 400 MG/200 ML BAG 200 MG IV (10:19)
[2017-11-22] MEDS: 0.9% NaCl Peripheral Flush Adult/Peds IV (10:20)
--- NOTE | 2017-11-22 13:04 | NURSING ---
up to bathroom and voided. Billy here and took pt down to surgery via bed at this time.
--- NOTE | 2017-11-22 13:10 | NURSING ---
This nurse gave report to Vanda in AC at this time.
--- NOTE | 2017-11-22 14:15 | CALC_PTH ---
PATIENT: ISAIAS PEDERSEN LOC: MS2 U#:[id number] AGE/SX: 62/F ROOM: [facility] RE11/19/[address]: Dr. Tito Alvarez DO : 1955 BED: 1 DIS: 11/22/2017 SPEC #: [id number] RECD: 11/22/17 15:56 STATUS: MARCEL RE #: [id number] PUJA: 11/22/17 14:[address]: Cooper Marques DEPT: SURGICAL PATHOLOGY RECD BY: Abilio Ingram ENTERED: 11/25/17 08:24 SP TYPE: Calculi OTHR DR: MD Dr. Tito Jiang DO Dr. Victor Velasquez, MD Tissues: CALCULI Procedures: Surgery Specimen Level I Comments: @ Ordering doctor for TALON edited from to @ by RGOOD at 11/25/17 164 @ Submitting doctor edited from to @ by RGOOD at 11/25/17 1643 HEADER OPERATION: Cysto, ureteroscopy, balloon dilatation, basket extraction PRE-OP DIAGNOSIS: Ureteral calculi, left TISSUE SUBMITTED: Calculi GROSS DIAGNOSIS A fragment of stone, clinically left ureteral calculus, submitted for analysis. RENNY:gabbie 11/25/17 COMMENT The calculus is submitted in its entirety for chemical stone analysis. The results from this study will be reported separately. GROSS DESCRIPTION Received in fixative is one container labeled with the patient's name and designated calculi. The specimen consists of a fragment of davis-brown stone measuring 0.5 x 0.5 x 0.4 cm. The entire specimen is submitted for stone analysis. / RENNY:gabbie 11/25/17 CPT: 84417
--- NOTE | 2017-11-22 14:28 | PCM.OPRPT ---
Problem List (1) UTI (urinary tract infection) Status: Acute Qualifiers: Urinary tract infection type: acute pyelonephritis Qualified Code(s): N10 - Acute pyelonephritis (2) Ureteral calculi Status: Acute Comment: left side with left hydro and UTI Report of Operation Date of Procedure: 11/22/17 Pre-Operative Diagnosis: left ureteral calculi causing high-grade obstruction Post-Operative Diagnosis: Same Surgery/Procedure Performed:: Cystoscopy left balloon dilation of ureter, and left ureteroscopy and basket extraction of stone, no stent placed. Description of Surgical Findings:: 62-year-old female taken back to the operating room she has a stone in the distal ureter, appears to have 2 stones in the distal ureter one very distally and one proximal to this. She had high-grade obstruction with dilated dilation of the ureter hydronephrosis on the left side he was admitted for urinary tract infection and and some mild back pain., CAT scan demonstrated obstruction of the left kidney with hydronephrosis and hydroureter and she also had an active urinary tract infection which is currently treated. She is now stable in the hospital taken to surgery today to extract the stone may be leave a stent. 62-year-old female taken back to the operating room at the smooth induction of general anesthesia went into the bladder the entire bladder was normal there is no tumors or stones within the bladder the left and right ureteral orifice normal position she had a mild cystocele I then cannulated the left ureteral orifice with a Glidewire advanced the Glidewire up the left ureter I could feel the wire hit the stone I then advanced the balloon dilator over the wire and balloon dilated the distal left ureter to allow for ureteroscopy. I then went went into the ureter with a semirigid SlimLine ureteroscope and immediately encountered a stone in the distal ureter I used a nitinol tipless basket was able to basket the stone quite easily and extracted without any trauma to the ureter. I then went back into the ureter and worked further all the way to the kidney and did not see any other stones along the course of the ureter ureter was nice and patent no injury to the ureter and draining easily therefore decided not to leave a stent drain the bladder patient's anesthetic was reversed and plan to see her back in the office in a few weeks for checkup. Type of Anesthesia:: General Drains: none - Admit VTE Documentation VTE Present on Admission: No VTE Mechan Device Prophylaxis: SCD's VTE Pharm Prophylaxis ordered?: No Reason prophylaxis not ordered:: Treatment Not Indicated
--- NOTE | 2017-11-22 14:32 | PCM.PN.BLA ---
Progress Note extraction of stone from left ureter. no stent place, if doing well post op can be discharged home with antibiotics and follow up in my office.
--- NOTE | 2017-11-22 15:48 | NURSING ---
Arrived back to room via bed from Surgery.
[2017-12-05 12:08] LABS: Ca Oxalate, Monohydrate 75 % (.); Calcium Phosphate 20 % (.); Size 6x4x3 mm (.)
== END 2017-11-22 19:11 | disposition home or self-care (01) | DRG 854 ==
LOC: ED 18:56 → MS2 22:12 → PCU 22:52 → MS2 23:01
PROVIDERS: Urology; Admitting Provider Internal Medicine; Emergency Provider Emergency Medicine; Family Provider Internal Medicine; PCP Internal Medicine
PROC: 0TJ98ZZ Inspection of Ureter, Via Natural or Artificial Opening Endoscopic (ICD-10-PCS; CPT 52352; principal; 2017-11-22 14:05)
DX: A41.9 Sepsis, unspecified organism (principal); N13.6 Pyonephrosis; E86.0 Dehydration; R65.20 Severe sepsis without septic shock; B96.1 Klebsiella pneumoniae [K. pneumoniae] as the cause of diseases classified elsewhere
CPT/HCPCS: 36415; 74177; 76770; 80048; 81001; 82360; 83605; 85025; 87040; 87077; 87086; 87088; 87186; 88300; 97161; 97165; 99284; J7030; Q9967; A4216; C1769; J0744; J2405

== ENCOUNTER → 2018-11-25 10:50 | Outpatient (CLI) | payer OTHER, SELFPAY ==
--- NOTE | 2018-11-25 | IMM_PTH ---
PATIENT: ISAIAS PEDERSEN LOC: PATRCIK U#:[id number] AGE/SX: 70/F ROOM: RE11/25/[address]: Dr. Skyler Eng MD : 1955 BED: DIS: SPEC #: [id number] RECD: 11/26/18 14:38 STATUS: MARCEL REZara #: [id number] PUJA: 11/25/18 00:[address]: Skyler Eng DEPT: IMMUNOHISTOCHEMISTRY RECD BY: Mare Freitas ENTERED: 11/26/18 14:41 SP TYPE: IMMUNO OTHR DR: Dr. Herrera Birmingham MD Tissues: Left breast, NOS Procedures: CK5-6 (add) E-CAD (add) HER2 GREGG (add) KI-67 (add) P53 (add) WA (add) ER (initial) PHYSICIAN & INSTITUTION [place] [id number] SPECIMEN INFORMATION: Tissue Source: Left breast Clinical Info: Left breast density central to nipple middle depth Specimen Number: [id number] #2 CPT code: 68680, 01895 x3, 27935 x3 METHODOLOGY: Deparaffinized sections of prefer/formalin-fixed tissue or PAP/DQ stained slides are incubated with monoclonal/polyclonal antibodies/oligonucleotide probes. Localization is made via biotin free immunoperoxidase method. Appropriate controls are performed and reacted as expected. Results on target cell population are indicated in the following table: RESULTS: ANTIBODY / CLONE RESULT Block 2 E-Cad (ECH-6) strongly positive, consistent with ductal origin P53 (DO-7) weakly positive CK5-6 (D5 & 1684) negative Ki-67 (30-9) strongly positive (80% of tumor cells) MORPHOMETRIC ANALYSIS ER (clone 6F11) 90%, strong nuclear staining WA (clone 16/1E2) 40%, moderate nuclear staining Her-2Neu (clone CB11) 3+, positive The prognostic test for HER2 is performed on formalin-fixed paraffin embedded tissue. A 3+ (positive) staining pattern is defined as intense, homogeneous, complete, circumferential membranous staining in >10% of contiguous tumor cells. A similar weak (2+) staining pattern is interpreted as equivocal. RAGHAV follow-up testing is recommended for all equivocal cases. Positivity/negativity for ER/WA is reported if > or < 1% of the tumor cells are immuno- reactive, respectively. The ASCO/CAP criteria is used for scoring. Reference: Journal of Clinical Oncology, 2013; 31:0470-7901 & 2010; 16:1179-3545. Duration of fixation: 7 Hrs; Sample Adequate: Yes. These assays have not been validated on decalcified tissues. Results should be interpreted with caution given the likelihood of false negativity on decalcified specimens. These tests were developed and their performance characteristics determined by [facility]. They may not have been cleared or approved by the U.S. Food and Drug Administration. The FDA has determined that such clearance or approval is not necessary. INTERPRETATION: Left breast, stereotactic needle core biopsy: Invasive ductal carcinoma. Positive for estrogen receptors (favorable prognostic indicator). Positive for progesterone receptors (favorable prognostic indicator). Positive for overexpression of AVY5tkh. CE:gabbie 11/27/18
--- NOTE | 2018-11-25 12:20 | BRBX_PTH ---
PATIENT: ISAIAS PEDERSEN LOC: PATRICK U#:[id number] AGE/SX: 70/F ROOM: RE11/25/[address]: Dr. Skyler Eng MD : 1955 BED: DIS: SPEC #: [id number] RECD: 11/25/18 13:09 STATUS: MARCEL CYN #: [id number] PUJA: 11/25/18 12:[address]: Skyler Eng DEPT: SURGICAL PATHOLOGY RECD BY: Tiago Bernard ENTERED: 11/25/18 13:35 SP TYPE: BREAST BX OTHR DR: Dr. Herrera Birmingham MD Tissues: Left breast, NOS Procedures: Surgery Specimen Level IV HEADER OPERATION: Left breast stereotactic needle core biopsy PRE-OP DIAGNOSIS: Left breast density central to nipple middle depth TISSUE SUBMITTED: Left breast core tissue FIXATION TIME: 7 hours MICROSCOPIC DIAGNOSIS Left breast, density central to nipple, middle depth, stereotactic needle core biopsy: Invasive ductal carcinoma. CE:rg 2/27/19 COMMENT Neoplastic cells show high nuclear grade. Maximal tumor dimension is 0.4 cm. Immunohistochemical stain with appropriate control for E-cadherin is positive in tumor cells. ER/CO/Vva3bee studies are performed on sections of tumor and the results from this study are reported separately ([id number]). Case has been reviewed in consultation with Dr. Lyon who concurs with the above diagnosis. IDC:[email or web address] MICROSCOPIC DESCRIPTION Slides are reviewed. GROSS DESCRIPTION Received is one container labeled with the patient's name and not further designated. The specimen consists of multiple elongated fragments of davis-yellow fibroadipose tissue that in aggregate measure 5 x 3 x 0.3 cm. The entire specimen is submitted in two cassettes. / RENNY:gabbie 11/25/18 TC:0 CPT: 27772 ADDENDUM ADDENDUM ADDENDUM ADDENDUM ADDENDUM ADDENDUM ADDENDUM ADDENDUM ADDENDUM ADDENDUM ADDENDUM 01/09/2019 11:14 ADDENDUM 01/09/2019 11:14 ADDENDUM 01/09/2019 11:14 ADDENDUM 01/09/2019 11:14 ADDENDUM 01/09/2019 11:14 This addendum is added to incorporate an outside pathology consultation report. The case was examined at [facility] (#[id number]) and the following diagnosis was rendered. Left breast, density central to nipple, middle depth, stereotactic-guided biopsy: Invasive ductal carcinoma, nuclear grade 3. High-grade ductal carcinoma in situ, solid type, with focal central necrosis. Please see complete above mentioned consultation report in EMR
--- NOTE | 2018-11-25 13:04 | PCM.OPRPT ---
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 The left breast was positioned in the CC approach on the [place] stereotactic table. Mammographic image demonstrated the area of abnormality to be located in the center of the radiograph. Stereotactic images were then obtained which demonstrated good positioning of the abnormality for biopsy with good stroke tom parameters. The breast was cleaned with Betadine area did one percent lidocaine was used to anesthetize the skin and a small stab incision made. An 8-gauge mammotome needle was placed into the pre-fire position. Stereotactic images demonstrated good positioning around the planned biopsy site. Local anesthetic injected deeply in the breast. The needle was deployed. Post deployment images demonstrated good positioning of the planned biopsy site. Multiple vacuum-assisted samples were obtained and ggsuph-hra-[id number] fashion. A gel marker clip was deployed. Post biopsy images demonstrated good position of the clip relative the biopsy cavity. The breast was removed from compression. Steri-Strips and a dressing applied. Post procedure mammogram images were obtained.
--- NOTE | 2018-11-25 13:07 | OP.PCM_ITS ---
Report of Operation Date of Procedure: 11/25/18 Pre-Operative Diagnosis: left breast abnormal mammogram central breast Post-Operative Diagnosis: left breast abnormal mammogram central breast Surgery/Procedure Performed:: left vacuum-assisted core needle stereotactic biopsy with marker placement hr payroll coordinator: None Type of Anesthesia:: Local Specimen's removed: left breast tissue Description of Procedure: The patient was brought to the stereotactic suite and informed of the plan course of events. The left breast was positioned in the CC approach on the Aguilar stereotactic table. Mammographic image demonstrated the area of abnormality to be located in the center of the radiograph. Stereotactic images were then obtained which demonstrated good positioning of the abnormality for biopsy with good stroke tom parameters. The breast was cleaned with Betadine area did one percent lidocaine was used to anesthetize the skin and a small stab incision made. An 8-gauge mammotome needle was placed into the pre-fire position. Stereotactic images demonstrated good positioning around the planned biopsy site. Local anesthetic injected deeply in the breast. The needle was deployed. Post deployment images demonstrated good positioning of the planned biopsy site. Multiple vacuum-assisted samples were obtained and afzbjm-lzh-lddzb fashion. A gel marker clip was deployed. Post biopsy images demonstrated good position of the clip relative the biopsy cavity. The breast was removed from compression. Steri-Strips and a dressing applied. Post procedure mammogram images were obtained.
== END ==
PROVIDERS: Family Provider Internal Medicine; PCP Internal Medicine; Referring Provider Surgery; Visit Provider Surgery
DX: C50.912 Malignant neoplasm of unspecified site of left female breast (principal); R92.8 Other abnormal and inconclusive findings on diagnostic imaging of breast
CPT/HCPCS: 19081; 88305; 88341; 88342; J7050

== ENCOUNTER → 2019-01-20 09:35 | Outpatient (CLI) | payer OTHER, SELFPAY ==
--- NOTE | 2018-12-06 11:02 | PCM.HP.BLA ---
History and Physical Date of Admission: 12/22/18 HISTORY AND PHYSICAL - BREAST CANCER ? Cristina Koch 1955 December 06, 2018 ? ? REFERRING PHYSICIAN: ??Herrera Birmingham MD ? CHIEF COMPLAINT: ?BREAST CANCER - LEFT??- INVASIVE DUCTAL CARCINOMA ? HPI:??The patient is a 63 year old female with a complaint of an abnormal mammogram. ?The patient had a mammogram with ultrasound on November 18, 2018 which follow-up images to May 13, 2018 which demonstrated: ? IMPRESSION: INCOMPLETE: NEEDS ADDITIONAL IMAGING EVALUATION The 6 mm mass in the left breast is indeterminate. ?An ultrasound is recommended. LIMITED ULTRASOUND OF LEFT BREAST: 11/18/2018 RESULT: Comparison is made to exams dated: ?05/13/2018 mammogram - [facility], 04/15/2018 mammogram, 11/27/2016 mammogram, and 05/31/2015 mammogram - [facility]. ?Color flow and real-time ultrasound of the left breast outer aspect were performed on the areas of interest. ?Segundo scale images of the real-time examination were reviewed. Left breast US does not find the enlarging 7 mm mass seen on the mammogram. ?Bx is suggested. IMPRESSION: SUSPICIOUS FINDING - BIOPSY SHOULD BE CONSIDERED ? ? The patient denies a history of breast masses. ?She does ?perform a self breast exam routinely. ?She notes no skin changes. ?She denies nipple discharge. ?She notes no axillary masses. ?She notes no family history of breast problems. ?She notes no significant breast trauma or breast difficulties in the past. ? The patient has had 2 pregnancies. ??Her last mammogram was 6 and 12 months previously. ?Her last menstrual period was 5 years previously. ?Her first menstrual period was at age 15. ? I performed a stereotactic biopsy of the left breast biopsy for her abnormal mammogram on November 24, 2018. ?The pathology returned as: ? MICROSCOPIC DIAGNOSIS Left breast, density central to nipple, middle depth, stereotactic needle core biopsy: ?Invasive ductal carcinoma. ? CE:rg ?11/26/18 ? COMMENT Neoplastic cells show high nuclear grade. ?Maximal tumor dimension is 0.4 cm. ? ? MORPHOMETRIC ANALYSIS ? ER (clone 6F11) ?90%, strong nuclear staining NJ (clone 16/1E2) ?40%, moderate nuclear staining Her-2Neu (clone CB11) ?3+, ???positive ? The patient notes minimal bruising since the procedure. ? The patient is currently scheduled to undergo MRI tomorrow. ?Anticipating no additional abnormalities- We extensively discussed her diagnosis and at the last visit discussed her surgical options including breast conservation surgical procedures, mastectomy without reconstruction and mastectomy with reconstruction. ?The patient has elected to undergo a left side?needle localization biopsy/lumpectomy with sentinel lymph node biopsy with possible axillary dissection. ? ? ? PAST?MEDICAL?HISTORY PAST MEDICAL HISTORY Diagnosis Date ? Excessive or frequent menstruation ? ? Menopause syndrome 09/16/2012 ? Menstrual migraine ? ? with visual aura ? Parapelvic renal cyst 11/19/2017 ? bilateral ? Sepsis due to Klebsiella (HCC) 11/19/2017 ? Ureterolithiasis 11/19/2017 ? left ? ? PAST?SURGICAL?HISTORY PAST SURGICAL HISTORY Procedure Laterality Date ? APPENDECTOMY ? ? ? COLONOSCOP W/ OR W/O BRSH SPEC ? 06/19/2011 ? Colonoscopy ? CYSTOSCOPY,+URETEROSCOPY Left 11/22/2017 ? basket extraction of ureteral stone ? PAST SURGICAL HISTORY OF ? ? ? BILATERAL SALPINGECTOMY ? ? CURRENT?MEDICATIONS ? Current Outpatient Medications: MULTIVITAMIN ORAL Take ?by mouth. Disp: Rfl: omega-3 fatty acids 1,000 mg ORAL Cap Take 2 capsules by mouth twice daily. Disp: Rfl: 0 Cholecalciferol, Vitamin D3, 2,000 unit ORAL Cap Take ?by mouth. Take one(1) capsule two(2) times daily. Disp: Rfl: 0 Kgvrsravxkdyutr-Qtwkkaydt-MH (BROMFED DM) 2-30-10 mg/5 mL syrup Take 10 mL by mouth four times daily as needed. Disp: 200 mL Rfl: 0 fluticasone (FLONASE) 50 mcg/actuation nasal spray Use 2 Sprays in each nostril once daily. Rinse mouth after use. Disp: 1 Bottle Rfl: 0 ? No current facility-administered medications for this visit.? ? ALLERGIES:?Amoxacillin [Amoxicillin]; Celebrex [Celecoxib]; Paxil [Paroxetine Hcl]; Shellfish ? PERSONAL HISTORY:? 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 control/protection: Tubal Ligation ??Other Topics ?Concerns: ?Not on file ??Social History Narrative ?Not on file ? FAMILY HISTORY:? FAMILY?HISTORY FAMILY HISTORY Problem Relation Age of Onset ? Heart Mother ? Prostate Cancer Father ? ? Heart Maternal Grandmother ?MO- ? Osteoporosis Maternal Grandmother ? ? Colon Cancer Other ?Maternal Cousin ? Heart Maternal Aunt ?MO ? Lipids Sister ?High Cholesterol ? Arthritis Sister ? ? Prostate Cancer Brother ? ? Osteoporosis Maternal Aunt ? ? REVIEW OF SYMPTOMS: ??The review of systems data was entered by the nurse and reviewed by me ? There are no exam notes on file for this visit. ? ? PHYSICAL EXAMINATION: ? General: ?The patient is 63 year old female, well nourished, well hydrated in no acute distress. ?The patient is oriented to time, place, and person. ? VITALS:?Last menstrual period 05/28/2011.?There is no height or weight on file to calculate BMI.? ? HEENT: ?Normal cephalic, ataumatic, pupils are equally round, sclera are anicteric, mucous membranes are moist, oropharynx is clear. ?Neck has no masses, asymmetry or lymphadenopathy. ?Thyroid is unremarkable. ? Respiratory: ?Clear to auscultation and percussion. ?Normal respiratory excursion and pattern. ? Cardiac: ?Examination is regular rate and rhythm. ? Abdominal exam: ?Soft, nontender, ?with no palpable masses. ?No hepatosplenomegaly. ?No palpable hernias. ? Rectal exam: ?exam deferred Extremities: ?no clubbing, cyanosis or edema. ?No adenopathy. ? Breast: ?Visual inspection reveals no retractions, nipple inversion, or skin changes. ?Palpation of the right breast reveals no dominant or suspicious masses. ?Palpation of the left breast reveals no dominant or suspicious masses. ?Axillary exam demonstrates no suspicious masses in either the left or right axilla. ?There is no nipple discharge expressed from either the left or right breast. ? LABORATORY VALUES: As Noted ? RADIOLOGIC STUDIES: ?As Noted ? Assessment ? IMPRESSION: BREAST CANCER -?LEFT??- INVASIVE DUCTAL CARCINOMA ? PLAN: ??I plan to perform a left side?needle localization biopsy/lumpectomy with sentinel lymph node biopsy with possible axillary dissection. ?The planned surgical procedure was discussed extensively with the patient. ?The risks, benefits, anticipated outcomes and possible complications and alternatives were discussed. ?My staff has also explained the procedure in understandable terms and the patient was given the option to take printed material concerning the planned procedure. ?The patient had the opportunity to ask questions concerning the planned procedure. ?The patient freely consents to the planned procedure. ?? ? Anticipated Surgical Procedure/ CPT Code:?left?preoperative stereotactic guided needle placement - 65591??LUMPECTOMY, WITH SENTINEL LYMPH NODE BIOPSY, Radiotracter identification - [id number], [id number], [id number]?, ?[id number], [id number], [id number] ? Anticipated Anesthetic:?General ? Patient weight:??Last menstrual period 05/28/2011.?BMI: ?There is no height or weight on file to calculate BMI. ? Planned antibiotic:?clindamycin 900mg IVPB carton making machinist to OR ? SCDs needed -?Yes ? Environmental Engineering Professor Needed -?Yes ?? ? Diagnoses:?(C50.412, ?Z17.0) Malignant neoplasm of upper-outer quadrant of left breast in female, estrogen receptor positive (HCC) ?(primary encounter diagnosis) ? Return to Clinic: The patient is instructed to follow-up with me?1 week post operatively. ? Skyler Eng MD
--- NOTE | 2018-12-06 11:14 | HP.PCM_ITS ---
History and Physical Date of Admission: 12/22/18 HISTORY AND PHYSICAL - BREAST CANCER ? Cristina Koch 1955 December 06, 2018 ? ? REFERRING PHYSICIAN: ??Herrera Birmingham MD ? CHIEF COMPLAINT: ?BREAST CANCER - LEFT??- INVASIVE DUCTAL CARCINOMA ? HPI:??The patient is a 63 year old female with a complaint of an abnormal mammogram. ?The patient had a mammogram with ultrasound on November 18, 2018 which follow-up images to May 13, 2018 which demonstrated: ? IMPRESSION: INCOMPLETE: NEEDS ADDITIONAL IMAGING EVALUATION The 6 mm mass in the left breast is indeterminate. ?An ultrasound is recommended. LIMITED ULTRASOUND OF LEFT BREAST: 11/18/2018 RESULT: Comparison is made to exams dated: ?05/13/2018 mammogram - [facility], 04/15/2018 mammogram, 11/27/2016 mammogram, and 05/31/2015 mammogram - [facility]. ?Color flow and real-time ultrasound of the left breast outer aspect were performed on the areas of interest. ?Segundo scale images of the real-time examination were reviewed. Left breast US does not find the enlarging 7 mm mass seen on the mammogram. ?Bx is suggested. IMPRESSION: SUSPICIOUS FINDING - BIOPSY SHOULD BE CONSIDERED ? ? The patient denies a history of breast masses. ?She does ?perform a self breast exam routinely. ?She notes no skin changes. ?She denies nipple discharge. ?She notes no axillary masses. ?She notes no family history of breast problems. ?She notes no significant breast trauma or breast difficulties in the past. ? The patient has had 2 pregnancies. ??Her last mammogram was 6 and 12 months previously. ?Her last menstrual period was 5 years previously. ?Her first menstrual period was at age 15. ? I performed a stereotactic biopsy of the left breast biopsy for her abnormal mammogram on November 24, 2018. ?The pathology returned as: ? MICROSCOPIC DIAGNOSIS Left breast, density central to nipple, middle depth, stereotactic needle core biopsy: ?Invasive ductal carcinoma. ? CE:rg ?11/26/18 ? COMMENT Neoplastic cells show high nuclear grade. ?Maximal tumor dimension is 0.4 cm. ? ? MORPHOMETRIC ANALYSIS ? ER (clone 6F11) ?90%, strong nuclear staining NC (clone 16/1E2) ?40%, moderate nuclear staining Her-2Neu (clone CB11) ?3+, ???positive ? The patient notes minimal bruising since the procedure. ? The patient is currently scheduled to undergo MRI tomorrow. ?Anticipating no additional abnormalities- We extensively discussed her diagnosis and at the last visit discussed her surgical options including breast conservation surgical procedures, mastectomy without reconstruction and mastectomy with reconstruction. ?The patient has elected to undergo a left side?needle localization biopsy/lumpectomy with sentinel lymph node biopsy with possible axillary dissection. ? ? ? PAST?MEDICAL?HISTORY PAST MEDICAL HISTORY Diagnosis Date ? Excessive or frequent menstruation ? ? Menopause syndrome 09/16/2012 ? Menstrual migraine ? ? with visual aura ? Parapelvic renal cyst 11/19/2017 ? bilateral ? Sepsis due to Klebsiella (HCC) 11/19/2017 ? Ureterolithiasis 11/19/2017 ? left ? ? PAST?SURGICAL?HISTORY PAST SURGICAL HISTORY Procedure Laterality Date ? APPENDECTOMY ? ? ? COLONOSCOP W/ OR W/O BRSH SPEC ? 06/19/2011 ? Colonoscopy ? CYSTOSCOPY,+URETEROSCOPY Left 11/22/2017 ? basket extraction of ureteral stone ? PAST SURGICAL HISTORY OF ? ? ? BILATERAL SALPINGECTOMY ? ? CURRENT?MEDICATIONS ? Current Outpatient Medications: MULTIVITAMIN ORAL Take ?by mouth. Disp: Rfl: omega-3 fatty acids 1,000 mg ORAL Cap Take 2 capsules by mouth twice daily. Disp: Rfl: 0 Cholecalciferol, Vitamin D3, 2,000 unit ORAL Cap Take ?by mouth. Take one(1) capsule two(2) times daily. Disp: Rfl: 0 Hpbgqtptjfniefe-Vkmlpnaxi-DS (BROMFED DM) 2-30-10 mg/5 mL syrup Take 10 mL by mouth four times daily as needed. Disp: 200 mL Rfl: 0 fluticasone (FLONASE) 50 mcg/actuation nasal spray Use 2 Sprays in each nostril once daily. Rinse mouth after use. Disp: 1 Bottle Rfl: 0 ? No current facility-administered medications for this visit.? ? ALLERGIES:?Amoxacillin [Amoxicillin]; Celebrex [Celecoxib]; Paxil [Paroxetine Hcl]; Shellfish ? PERSONAL HISTORY:? 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 control/protection: Tubal Ligation ??Other Topics ?Concerns: ?Not on file ??Social History Narrative ?Not on file ? FAMILY HISTORY:? FAMILY?HISTORY FAMILY HISTORY Problem Relation Age of Onset ? Heart Mother ? Prostate Cancer Father ? ? Heart Maternal Grandmother ?NE- ? Osteoporosis Maternal Grandmother ? ? Colon Cancer Other ?Maternal Cousin ? Heart Maternal Aunt ?NE ? Lipids Sister ?High Cholesterol ? Arthritis Sister ? ? Prostate Cancer Brother ? ? Osteoporosis Maternal Aunt ? ? REVIEW OF SYMPTOMS: ??The review of systems data was entered by the nurse and reviewed by me ? There are no exam notes on file for this visit. ? ? PHYSICAL EXAMINATION: ? General: ?The patient is 63 year old female, well nourished, well hydrated in no acute distress. ?The patient is oriented to time, place, and person. ? VITALS:?Last menstrual period 05/28/2011.?There is no height or weight on file to calculate BMI.? ? HEENT: ?Normal cephalic, ataumatic, pupils are equally round, sclera are anicteric, mucous membranes are moist, oropharynx is clear. ?Neck has no masses, asymmetry or lymphadenopathy. ?Thyroid is unremarkable. ? Respiratory: ?Clear to auscultation and percussion. ?Normal respiratory excursion and pattern. ? Cardiac: ?Examination is regular rate and rhythm. ? Abdominal exam: ?Soft, nontender, ?with no palpable masses. ?No hepatosplenomegaly. ?No palpable hernias. ? Rectal exam: ?exam deferred Extremities: ?no clubbing, cyanosis or edema. ?No adenopathy. ? Breast: ?Visual inspection reveals no retractions, nipple inversion, or skin changes. ?Palpation of the right breast reveals no dominant or suspicious masses. ?Palpation of the left breast reveals no dominant or suspicious masses. ?Axillary exam demonstrates no suspicious masses in either the left or right axilla. ?There is no nipple discharge expressed from either the left or right breast. ? LABORATORY VALUES: As Noted ? RADIOLOGIC STUDIES: ?As Noted ? Assessment ? IMPRESSION: BREAST CANCER -?LEFT??- INVASIVE DUCTAL CARCINOMA ? PLAN: ??I plan to perform a left side?needle localization biopsy/lumpectomy with sentinel lymph node biopsy with possible axillary dissection. ?The planned surgical procedure was discussed extensively with the patient. ?The risks, benefits, anticipated outcomes and possible complications and alternatives were discussed. ?My staff has also explained the procedure in understandable terms and the patient was given the option to take printed material concerning the planned procedure. ?The patient had the opportunity to ask questions concerning the planned procedure. ?The patient freely consents to the planned procedure. ?? ? Anticipated Surgical Procedure/ CPT Code:?left?preoperative stereotactic guided needle placement - 31815??LUMPECTOMY, WITH SENTINEL LYMPH NODE BIOPSY, Radiotracter identification - [id number], [id number], [id number]?, ?[id number], [id number], [id number] ? Anticipated Anesthetic:?General ? Patient weight:??Last menstrual period 05/28/2011.?BMI: ?There is no height or weight on file to calculate BMI. ? Planned antibiotic:?clindamycin 900mg IVPB tong setter to OR ? SCDs needed -?Yes ? Customer Service Teller Needed -?Yes ?? ? Diagnoses:?(C50.412, ?Z17.0) Malignant neoplasm of upper-outer quadrant of left breast in female, estrogen receptor positive (HCC) ?(primary encounter diagnosis) ? Return to Clinic: The patient is instructed to follow-up with me?1 week post operatively. ? Skyler Eng MD
== END ==
PROVIDERS: Family Provider Internal Medicine; PCP Internal Medicine; Referring Provider Surgery; Visit Provider Surgery
DX: C50.412 Malignant neoplasm of upper-outer quadrant of left female breast (principal); Z17.0 Estrogen receptor positive status [ER+]

== ENCOUNTER 2019-01-27 17:21 | Emergency (ER) | payer OTHER, SELFPAY ==
[2019-01-27 17:23] VITALS: BP 130/79; PULSE 99; RESP 15; TEMP 36.8; O2SAT 97; BMI 29.9
--- NOTE | 2019-01-27 17:37 | RAD_ITS ---
STUDY: X-RAY CHEST REASON FOR EXAM: Female, 63 years old. Numbness and tingling. Currently receiving chemotherapy for breast cancer. TECHNIQUE: Single AP portable view of the chest. COMPARISON: None. FINDINGS: There is a right subclavian Port-A-Cath with its tip in the midsuperior vena cava. The lungs are clear and expanded. There is no demonstrated pleural abnormality. Normal size heart. Normal mediastinum and bin. Normal visualized pulmonary arteries. Normal visualized aortic arch and descending thoracic aorta. The thoracic spine is obscured by the mediastinum. Normal visualized ribs, clavicles, and shoulders. There is no demonstrated abnormality of the visualized soft tissue structures of the upper abdomen. RAD/Chest 1 View (Portable) IMPRESSION: 1. Right Port-A-Cath. 2. No acute cardiopulmonary disease. Electronically Signed: Roman Luis DO at 18:02 EDT Tel [phone], Service support ,
--- NOTE | 2019-01-27 17:37 | EKG12_ITS ---
Test Reason : Blood Pressure : / mmHG Vent. Rate : 085 BPM Atrial Rate : 085 BPM P-R Int : 144 ms QRS Dur : 080 ms QT Int : 356 ms P-R-T Axes : 038 -10 022 degrees QTc Int : 423 ms Normal sinus rhythm Minimal voltage criteria for LVH, may be normal variant Borderline ECG Confirmed by CESAR HUMPHREY ([id number]), editor map YOLIS ESQUEDA ([id number]) on 02/02/2019 2:15:16 PM Referred By: RICKY Confirmed By:ORALIA HUMPHREY
--- NOTE | 2019-01-27 17:42 | NURSING ---
NO OLD EKGS
--- NOTE | 2019-01-27 17:50 | ED.VISSUMM ---
- ER Visit Summary Date of Service: 01/27/19 Chief Complaint: Bilateral hand and feet paresthesias History of Present Illness: The patient is a 63 F presenting with bilateral hand and feet paresthesias. She states it started yesterday. She denies weakness. She states that she has had some hyperventilation symptoms in the past. She has a history of anxiety. This morning she felt short of breath. She denies chest pain. Denies fever. Denies syncope. She is currently on chemotherapy for breast cancer. Her last chemotherapy was January 16. She called Dr. Hdz's nurse and was advised to come to the ED. Physical Examination: Vitals are stable. Patient is afebrile. Alert no acute distress. Pulse ox 97% on room air HEENT exam is unremarkable. Neck is supple. Lungs are clear and equal bilaterally. Heart is regular rate and rhythm. Abdomen is soft nontender nondistended. Extremities are unremarkable. Skin is warm and dry. No focal neurologic deficit. Normal strength and sensation Remainder of exam is unremarkable. Emergency Department Course and Treatment: EKG is sinus rate of 85 with no acute ischemic changes. Chest x-ray shows no acute process. CBC shows white count 16.9, platelet 93. Chemistries unremarkable. Urinalysis shows 0-5 white blood cells, 5-10 red blood cells. Troponin is negative. Discussed with Dr. Hdz. He recommends d-dimer. If this is negative she can be discharged to follow-up in his office. D-dimer is negative as well as repeat troponin. Patient is feeling improved while in the ED. She will follow-up with Dr. Hdz. She is advised to return to the ED for worsening complaints. Disposition: Discharge home Impression: Bilateral hand and feet paresthesias This note was generated with [employer] software. It may contain incorrect words, spelling, and punctuation that were not noted in review of the chart prior to signing ED Disposition - Plan for ED Patient: Instructions: ED Paraesthesias Referrals: Daphne Becker MD [Primary Care Provider] -
[2019-01-27 18:24] LABS: Hematocrit 39.7 % (37-47); Hemoglobin 13.7 g/dl (12.0-15.0); Mean Corp Hgb Conc 34.5 g/gl (32-36); Mean Corpuscular Hgb 31.5 pg (27.0-32.0); Mean Corpuscular Volume 91.3 fL (81-99); Mean Platelet Vol. 9.7 fl (6.2-12.0); Platelet Count 93 K/mm3 (150-450); RBC Distribution Width CV 13.6 % (11.6-14.6); RBC Distribution Width SD 44.7 fl (35.1-43.9); Red Blood Count 4.35 M/mm3 (4.2-5.4); White Blood Count 16.9 K/mm3 (4.4-11.0)
[2019-01-27 18:40] LABS: Differential Indicated MANUAL DIFF; POSITIVE COUNT YES; POSITIVE DIFFERENTIAL NO; POSITIVE MORPHOLOGY YES
[2019-01-27 18:45] LABS: Anion Gap 7 (5-15); BUN 15 mg/dL (7-18); BUN/Creat Ratio 19.1 RATIO (10-20); Calcium,Total 8.6 mg/dL (8.5-10.1); Chloride 109 mmol/L (98-107); Creatinine, Serum 0.79 mg/dL (0.55-1.02); EST Glomerular Filtration Rate 79 mL/min (>60); Est Glom Filt Rate - Afr Amer 95 mL/min (>60); Estimated Creatinine Clearance 75.44 ml/min; Glucose 115 mg/dL (74-106); Potassium 3.7 mmol/L (3.5-5.1); Sodium Level 139 mmol/L (136-145)
[2019-01-27 19:17] LABS: Bacteria 0 SEEN /hpf (None Seen); Mucous, Urine 0 SEEN /hpf (<or=2+); Squamous Epithelial Cells - UA 0 SEEN /hpf (5-10)
[2019-01-27 19:20] LABS: Lymphocyte 12 % (19-41); Metamyelocyte 3 % (0-1); Monocyte 4 % (0-10); Myelocyte 3 (0-0); Neutrophil-Band 6 % (0-5); Neutrophil-Segmented 72 % (47-70); Total Cells Counted 100 (MANUAL DIFF)
[2019-01-27 19:23] LABS: Absolute Lymphocyte Count 2.03 X10^3/ul (0.83-4.51); Absolute Neutrophil Count 13.2 X10^3/uL (2.0-7.7)
[2019-01-27 19:24] LABS: Anisocytosis RARE; Macrocytosis RARE; Platelet Estimate MOD DEC (ADEQ); Toxic Granulation 1+
[2019-01-27 20:16] LABS: Color, Urine Yellow (Yellow); Glucose, Dipstick Normal (Normal); Ketone-Dipstick Negative (Negative); Leukocyte Esterase-Dipstick 25 /ul (Negative); Nitrite-Dipstick Negative (Negative); Occult Blood-Urine 150 /ul (Negative); Protein-Dipstick Negative (Negative); Urine Bilirubin Dipstick Negative (Negative); Urine Clarity Clear (Clear); Urine Urobilinogen Normal (Normal); Urine pH 6.5 (5.0 - 8.0)
[2019-01-27 20:28] LABS: Red Blood Cells-Urine 5-10 SEEN /hpf (0-5); White Blood Cells 0-5 SEEN /hpf (0-5)
[2019-01-27 21:34] LABS: D-Dimer Quantitative (DVT/PE) < 0.27 FEU/ug/m (0.27-0.49)
--- NOTE | 2019-01-27 22:04 | ED.DEP ---
ED Disposition - Plan for ED Patient: Instructions: ED Paraesthesias Referrals: Daphne Becker MD [Primary Care Provider] -
[2019-01-27 22:27] VITALS: BP 110/72; PULSE 89; RESP 14; O2SAT 98
--- NOTE | 2019-01-27 22:27 | ED.RN ---
Med port was flushed with heparin per proper d/c procedure.
[2019-01-29 09:27] LABS: Pathologist Review Reviewed
== END 2019-01-27 22:28 | disposition home or self-care (01) ==
LOC: ED 17:57
PROVIDERS: Emergency Provider Emergency Medicine; Family Provider Internal Medicine; PCP Internal Medicine
DX: R20.2 Paresthesia of skin (principal); R06.00 Dyspnea, unspecified; Z85.3 Personal history of malignant neoplasm of breast; Z79.899 Other long term (current) drug therapy
CPT/HCPCS: 36591; 71045; 80048; 81001; 84484; 85025; 85379; 93005; 99283; J7040; A4216

== ENCOUNTER → 2023-05-07 | Outpatient (CLI) | payer MEDICARE, OTHER, SELFPAY ==
--- NOTE | 2023-05-07 | LES_PTH ---
PATIENT: ISAIAS PEDERSEN LOC: [facility] U#:[id number] AGE/SX: 68/F ROOM: RE05/07/[address]: Dr. Brittany Bird MD : 1955 BED: DIS: 05/07/2023 SPEC #: [id number] RECD: 05/07/23 15:12 STATUS: MARCEL REZara #: [id number] PUJA: 05/07/23 00:[address]: LINDSAY WALDROP DEPT: SURGICAL PATHOLOGY RECD BY: Cas Kelley ENTERED: 05/08/23 07:33 SP TYPE: Lesion OTHR DR: MD Dr. Brittany Nava MD Tissues: Skin of face, NOS Procedures: Surgery Specimen Level III HEADER OPERATION: Excisional biopsy of right cheek papilloma PRE-OP DIAGNOSIS: Right cheek papilloma TISSUE SUBMITTED: Right cheek fibroma MICROSCOPIC DIAGNOSIS Right cheek lesion, biopsy: Benign fibroepithelial polyp. AM:gabbie 05/09/2023 MICROSCOPIC DESCRIPTION Slides are reviewed. GROSS DESCRIPTION Received in fixative is one container labeled with the patient's name and designated cheek. The specimen consists of a fragment of davis mucosal tissue measuring 0.2 x 0.2 x 0.1 cm. The specimen is totally submitted in one cassette. / SJ:gabbie 05/08/2023 TC:5 CPT:70963
== END | disposition home or self-care (01) ==
PROVIDERS: PCP Internal Medicine; Referring Provider Obstetrics & Gynecology; Visit Provider Obstetrics & Gynecology
DX: L98.9 Disorder of the skin and subcutaneous tissue, unspecified (principal)
CPT/HCPCS: 88304; 88305

== ENCOUNTER 2023-06-11 09:00 | Outpatient (RCR) | payer MEDICARE, OTHER, SELFPAY ==
--- NOTE | 2023-05-31 10:03 | HP.OTEVAL_ITS ---
Patient's Visit Information Visit Information Visit Information: ISAIAS PEDERSEN is a 68 year old F, referred to Occupational Therapy by ALEM DANIELS, with a diagnosis of right colles wrist fracture. Date of Evaluation: 05/30/23 Occupational Therapist: Jil Johnson, OTR/Ritesh, CHT Subjective Subjective: This 68 year old comes with right wrist fracture. DOI April 06 and surgery. Pt on vacation in [place] fell while wheeling her suitcase. 2 weeks in a cast, has been wearing a brace until last SaturdayMay 20. Pt reports whole R arm is achy. Pt is right hand dominant. 7 weeks and 5 days since surgery. No pain, unless picking up something heavy. Pt is retired. Pt has breast cancer and had some numbness and tingling. Pt reports that she enjoys painting though limited a little by wrist movement. Objective Objective/Observation: Pt guards her right arm a little ROM Forearm: right 70/88 left 75/90 Wrist: right 35/45 left 50/65 ROM Comments: Able to make a tight fist with R hand with PROM got to 45* extension and 50*flexion in R wrist R RD [address] 20 UD 40 Pt demonstrates limited right supination and wrist flexion/ext. 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 Sensation Sensation Comments: denies any changes Nine Hole Peg Right: 21.06 sec Left: 19.87 sec Quick DASH-Disab of Arm,Shoulder& Hand Quick DASH Score: 25.0000 Goals Goal:: Pt will demonstrate increased right hand fork truck operator to 40# by discharge. Pt will demonstrate increased tripod pinch strength to 10# by discharge. Goal:: Pt will demonstrate increased right wrist flexion to 50* or greater by discharge. Pt will demonstrate increased right wrist extension to 45* or greater by discharge. Pt will demonstrate increased right wrist UD to 35* or greater by discharge. Goal:: Pt to demo overall increased indep in ADL/IADL tasks by decreased total DASH score by 8 points by discharge. Rehabilitation General Assessment: Pt seen for OT eval for right colles wrist fracture s/p 7 weeks and 5 days ORIF. 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 This limits pt's ability to perform ADL/IADL tasks. Pt will benefit from 1x a week every other week for a least 2 more sessions to safely return to PLOF adn strength. Therapist ed pt in OT POC and provided with exercises to perform at home. Pt verbalizes understanding and agreeable to OT POC. therapy session was directly supervised and doc. approved by Jil Johnson OTR/Ritesh, CHT. Rehabilitation Potential: Excellent Anticipated Interventions Anticipated Interventions: A/AAROM/PROM, Strengthening, Modalities, Orthoses, Joint Protection/Energy Conservation and Home Program Visit Plan Frequency: Every Other Week Duration: 4 Weeks TEXT: Thank you for the opportunity to evaluate your patient. For Medicare and Medicare HMO plans, please review the plan of care and approve it. It will need to be FAXED BACK to us at [phone] for Medicare purposes. Please let me know if there are questions or concerns regarding this plan of care. Physician Signature: Date:
== END 2023-06-11 19:00 | disposition home or self-care (01) ==
LOC: OT 09:00
PROVIDERS: PCP Internal Medicine
DX: S62.109D Fracture of unspecified carpal bone, unspecified wrist, subsequent encounter for fracture with routine healing (principal)
CPT/HCPCS: 97110; 97166